=== PATIENT | female | born 1965 | race Caucasian/White ===

== ENCOUNTER 2018-11-16 08:00 | Outpatient (CLI) | payer BC | END 2018-11-16 23:59 | disposition home or self-care (01) | LOC: LAB.R 08:00 | PROVIDERS: ATTEND Physician Assistant | DX: B34.9 Viral infection, unspecified (principal) | CPT/HCPCS: 87275; 87276 ==

== ENCOUNTER 2018-11-16 09:47 | Outpatient (CLI) | payer BC ==
--- NOTE | 2018-11-16 12:04 | XRAY Report ---
Reason: COUGH Procedure Date: 11/16/2018 Accession Number: [id number] / [id number] Procedure: WCP - Chest 2 View X-Ray CPT Code: 94099 FULL RESULT: EXAM: CHEST RADIOGRAPHY EXAM DATE: 11/16/2018 09:59 AM. CLINICAL HISTORY: Cough. COMPARISON: None. TECHNIQUE: 2 views. FINDINGS: Lungs/Pleura: No focal opacities evident. No pleural effusion. No pneumothorax. Normal volumes. Mediastinum: Heart and mediastinal contours are unremarkable. Other: None. IMPRESSION: No acute cardiopulmonary abnormality. RADIA
== END 2018-11-16 09:48 | disposition home or self-care (01) ==
LOC: DI.WCP 09:47
PROVIDERS: ATTEND Physician Assistant
DX: R05 Cough (principal)
CPT/HCPCS: 71046

== ENCOUNTER 2019-03-05 09:05 | Outpatient (CLI) | payer BC ==
--- NOTE | 2019-03-05 10:26 | Mammography Report ---
Reason: SCREENING MAMMO Procedure Date: 03/05/2019 Accession Number: [id number] / [id number] Procedure: MGN - Screening Mammo Dig Bilat CPT Code: FULL RESULT: EXAM: Screening Mammo Dig Bilat DATE: 03/05/2019 9:27 AM CLINICAL HISTORY: Screening TECHNIQUE: (B) - Bilateral CC and MLO views were obtained. COMPARISON: None PARENCHYMAL PATTERN: (A) - The breasts demonstrate scattered fibroglandular densities bilaterally. FINDINGS: There is a small breast asymmetry right breast seen only on CC view, projecting on nipple line, middle one third. No other suspicious findings in either breast. IMPRESSION: Incomplete examination. BI-RADS category 0. RECOMMENDATION: (ADDMAM) - Recommend additional mammographic views. Consider unilateral 3-D mammography and targeted ultrasound (if indicated). BI-RADS CATEGORY: (0) - Incomplete Examination - need additional evaluation. STANDARD QUALIFYING STATEMENTS: 1. This examination was not reviewed with the aid of Computer-Aided Detection (CAD). 2. A negative or benign imaging report should not preclude biopsy if clinically suspicious findings are present. 3. Dense breasts may obscure an underlying neoplasm. 4. This examination was reviewed without the aid of 3D breast imaging (tomosynthesis).
== END 2019-03-05 09:06 | disposition home or self-care (01) ==
LOC: DI.N 09:05
DX: Z12.31 Encounter for screening mammogram for malignant neoplasm of breast (principal); R92.8 Other abnormal and inconclusive findings on diagnostic imaging of breast
CPT/HCPCS: 77067

== ENCOUNTER 2021-10-26 11:52 | Emergency (ER) | payer BC ==
--- NOTE | 2021-10-26 12:08 | ED Physician Documentation ---
History of Present Illness - Stated complaint Stated Complaint: ABD PX/FEMALE - Chief complaint Chief Complaint: Abd Pain - Additonal information Additional information: 56-year-old female presents emergency department for evaluation of left-sided lower abdominal pain that began today. She reports that she has felt constipated. This morning when she had a bowel movement it was just bright red blood. She denies any chest pain, no fevers no syncope or shortness of air. No history of similar. She has never had a colonoscopy but did have a Cologuard test done last year that was negative. past surgical history is most significant for uterine prolapse repair which has subsequently failed. Past medical history positive for hypertension on lisinopril Patient tested positive for COVID-19 10/17/2021. She is not vaccinated for [place] VID-19. Review of Systems Constitutional: denies: Fever, Chills Cardiac: reports: Reviewed and negative Respiratory: reports: Reviewed and negative GI: reports: Abdominal Pain, Bloody / black stool. denies: Nausea, Vomiting : reports: Reviewed and negative Skin: reports: Reviewed and negative Musculoskeletal: reports: Reviewed and negative Neurologic: reports: Reviewed and negative PD PAST MEDICAL HISTORY - Present Medications Home Medications: Ambulatory Orders Medication Instructions Recorded Confirmed Amox/Clav 875/125 [Augmentin 1 tablet PO Q12H 10 Days #20 tablet 10/26/21 875/125 Tab] - Allergies Allergies/Adverse Reactions: Allergies Allergy/AdvReac Type Severity Reaction Status Date / Time No Known Drug Allergies Allergy Verified 10/26/21 12:05 PD ED PE NORMAL - General General: Alert and oriented X 3, No acute distress - HEENT HEENT: PERRL - Neck Neck: Supple, no meningeal sign, No adenopathy - Cardiac Cardiac: RRR, No murmur, No gallop - Respiratory Respiratory: No respiratory distress, Clear bilaterally - Abdomen Abdomen: Normal bowel sounds, Soft, Non tender - Rectal Rectal: Other (Digital rectal exam reveals bright red blood. Nontender.) - Back Back: No CVA TTP, No spinal TTP - Derm Derm: Normal color, Warm and dry, No rash - Extremities Extremities: No deformity, No tenderness to palpate, Normal ROM s pain - Neuro Neuro: Alert and oriented X 3, recruitment director 2-12 intact, No motor deficit Eye Opening: Spontaneous Motor: Obeys Commands Verbal: Oriented GCS Score: 15 - Psych Psych: Normal mood, Normal affect Results - Vitals Vitals: Vital Signs - 24 hr 10/26/21 10/26/21 10/26/21 12:02 12:57 14:47 Temperature 37.1 C Heart Rate 104 H 100 90 Respiratory 16 18 Rate Blood Pressure 130/87 H 116/70 O2 Saturation 99 99 100 Oxygen O2 Source Room air - Labs Labs: Laboratory Tests 10/26/21 10/26/21 10/26/21 12:18 12:18 12:18 WBC 11.0 H RBC 5.04 Hgb 15.0 Hct 45.6 MCV 90.5 MCH 29.8 MCHC 32.9 RDW 12.5 Plt Count 207 MPV 10.1 Neut # (Auto) 8.6 H Lymph # (Auto) 1.4 L Hendricks # (Auto) 0.9 Eos # (Auto) 0.1 Baso # (Auto) 0.0 Absolute Nucleated RBC 0.00 Nucleated RBC % 0.0 PT INR Sodium 137 Potassium 3.5 Chloride 103 Carbon Dioxide 27 Anion Gap 7.0 BUN 11 Creatinine 0.9 Estimated GFR (MDRD) 65 L Glucose 122 H Calcium 9.0 Total Bilirubin 0.9 AST 21 ALT 28 Alkaline Phosphatase 50 Total Protein 6.9 Albumin 3.9 Globulin 3.0 Albumin/Globulin Ratio 1.3 Lipase 28 Urine Color Urine Clarity Urine pH Ur Specific [place] Urine Protein Urine Glucose (UA) Urine Ketones Urine Occult Blood Urine Nitrite Urine Bilirubin Urine Urobilinogen Ur Leukocyte Esterase Ur Microscopic Review Urine Culture Comments Blood Type O POSITIVE Antibody Screen NEGATIVE 10/26/21 10/26/21 12:18 13:00 WBC RBC Hgb Hct MCV MCH MCHC RDW Plt Count MPV Neut # (Auto) Lymph # (Auto) Hendricks # (Auto) Eos # (Auto) Baso # (Auto) Absolute Nucleated RBC Nucleated RBC % PT 12.2 INR 1.1 Sodium Potassium Chloride Carbon Dioxide Anion Gap BUN Creatinine Estimated GFR (MDRD) Glucose Calcium Total Bilirubin AST ALT Alkaline Phosphatase Total Protein Albumin Globulin Albumin/Globulin Ratio Lipase Urine Color YELLOW Urine Clarity CLEAR Urine pH 6.0 Ur Specific [place] 1.010 Urine Protein NEGATIVE Urine Glucose (UA) NEGATIVE Urine Ketones NEGATIVE Urine Occult Blood TRACE-INTA Urine Nitrite NEGATIVE Urine Bilirubin NEGATIVE Urine Urobilinogen 0.2 (NORMAL) Ur Leukocyte Esterase NEGATIVE Ur Microscopic Review NOT INDICATED Urine Culture Comments NOT INDICATED Blood Type Antibody Screen - Rads (name of study) CT abdomen Radiology: Final report received (Segmental colitis centered within the descending colon likely secondary to an infectious or inflammatory process. No evidence of diverticulitis.) PD MEDICAL DECISION MAKING - ED course Complexity details: reviewed results, re-evaluated patient, considered differential, d/w patient ED course: 56-year-old female presents emergency department for evaluation of acute onset left sided abdominal pain as well as bright red blood per rectum. No history of similar in the past. Screening labs did not show any worrisome findings. Her hemoglobin is 15. Electrolytes are nonactionable. I did do a digital rectal exam with marie hematochezia seen. CT of the abdomen does show segmental colitis within the descending colon likely an infectious or inflammatory process. Patient will be started on Augmentin twice daily for the next 10 days. She is advised a clear liquid diet for the next 24 to 48 hours then slowly advance. Emergent return precautions were discussed for worsening symptoms. Patient recently tested positive for COVID-19. She was encouraged to obtain the vaccine about 90 days from the diagnosis date. Departure - Departure Disposition: 01 Home, Self Care Clinical Impression: Colitis Condition: Stable Record reviewed to determine appropriate education?: Yes Prescriptions: Amox/Clav 875/125 [Augmentin 875/125 Tab] 1 tablet PO Q12H 10 Days #20 tablet Comments: Pilar you are seen in the emergency department today for left-sided abdominal pain as well as new onset bright red rectal bleeding. Your screening labs did not show any worrisome findings. Your hemoglobin was 15. We did do a CT of your abdomen pelvis and it does show a colitis within your descending colon. This is most likely infectious meaning bacterial versus an inflammatory process which could be related to recent COVID-19 infection. In order to manage this we are starting you on Augmentin. It this has been sent electronically to the [facility] in [place]. Please begin taking twice daily for the next 10 days. Over the next 24 to 48 hours I would like you to adhere to a clear liquid diet. If your symptoms are improving then you can slowly advance your diet with bananas, rice, applesauce and then toast. If despite the antibiotics you have worsening symptoms, develop high fever, have a racing heart rate, severe worsening abdominal pain then please return immediately to the ER for a second evaluation.
[2021-10-26 12:28] LABS: BASOPHILS % (AUTO) 0.1 %; EOSINOPHILS # (AUTO) 0.1 10^3/uL (0.0-0.7); EOSINOPHILS % (AUTO) 0.5 %; HCT - HEMATOCRIT 45.6 % (37.0-47.0); LYMPHOCYTES # (AUTO) 1.4 10^3/uL (1.5-3.5); MEAN CORPUSCULAR HEMOGLOBIN 29.8 pg (27.0-31.0); MEAN CORPUSCULAR HGB CONC 32.9 g/dL (32.0-36.0); MEAN CORPUSCULAR VOLUME 90.5 fL (81.0-99.0); MEAN PLATELET VOLUME 10.1 fL (7.9-10.8); MONOCYTES # (AUTO) 0.9 10^3/uL (0.0-1.0); MONOCYTES % (AUTO) 8.2 %; NEUTROPHILS # (AUTO) 8.6 10^3/uL (1.5-6.6); NEUTROPHILS % (AUTO) 77.7 %; PLT - PLATELET COUNT 207 10^3/uL (130-450); RED BLOOD COUNT 5.04 10^6/uL (4.20-5.40); RED CELL DISTRIBUTION WIDTH 12.5 % (12.0-15.0)
[2021-10-26 12:43] LABS: ALBUMIN 3.9 g/dL (3.2-5.5); ALBUMIN/GLOBULIN RATIO 1.3 (1.0-2.2); BILIRUBIN,TOTAL 0.9 mg/dL (0.2-1.0); CREATININE 0.9 mg/dL (0.4-1.0); POTASSIUM 3.5 mmol/L (3.5-5.0); TOTAL PROTEIN 6.9 g/dL (6.7-8.2)
[2021-10-26] MEDS ORDERED: IOVERSOL 320 100 ML VIAL IVP ONE ×2 (12:55→14:09)
[2021-10-26 13:03] LABS: INR 1.1 (0.8-1.2); PT - PROTHROMBIN TIME 12.2 secs (9.9-12.6)
[2021-10-26 13:10] LABS: BILIRUBIN,URINE NEGATIVE (NEGATIVE); GLUCOSE, URINE (UA) NEGATIVE (NEGATIVE); KETONES,URINE (UA) NEGATIVE (NEGATIVE); LEUKOCYTE ESTERASE, URINE NEGATIVE (NEGATIVE); NITRITE,URINE NEGATIVE (NEGATIVE); OCCULT BLOOD,URINE TRACE-INTA (NEGATIVE); PROTEIN,URINE NEGATIVE (NEGATIVE); UROBILINOGEN,URINE 0.2 (NORMAL) E.U./dL (NORMAL)
[2021-10-26] MEDS ORDERED: SODIUM CHLORIDE 0.9% 1,000 ML IV STA (13:12)
[2021-10-26 13:14] LABS: CLARITY,URINE CLEAR (CLEAR)
--- NOTE | 2021-10-26 14:38 | CT Report ---
PROCEDURE: Abdomen/Pelvis W INDICATIONS: LLQ Abdominal pain, diverticulitis suspected CONTRAST: IV CONTRAST: Optiray 320 ml: 100 PO CONTRAST: *NO PO CONTRAST TECHNIQUE: After the administration of intravenous contrast, 5 mm thick sections acquired from the diaphragms to the symphysis. 5 mm thick coronal and sagittal reformats were acquired. For radiation dose reducti on, the following was used: automated exposure control, adjustment of mA and/or kV according to priscilla ent size. COMPARISON: None. FINDINGS: Image quality: Excellent. ABDOMEN: Lung bases: There is mild dependent atelectasis. Heart size is normal. Solid organs: There is a cyst in segment 6 of the right hepatic lobe measuring up to 0.9 cm. An addit ional small hypodense focus in segment 8 is too small to characterize but likely represents a cyst. G allbladder appears within normal limits without calcified gallstones. Biliary system is non dilated. The spleen is normal in size. Pancreas enhances normally without peripancreatic fat stranding or flu id collections. No adrenal nodules. Kidneys demonstrate no hydronephrosis. Peritoneum and bowel: Small bowel loops demonstrate normal wall thickness and caliber. The appendix i s normal in appearance. There is segmental colonic wall thickening involving the length of the descen ding colon with mild involvement in the distal transverse colon and proximal sigmoid colon. Mild asso ciated colonic wall thickening is demonstrated. Findings are consistent with a colitis. No free fluid or air. Nodes and vessels: No retroperitoneal or mesenteric adenopathy by size criteria. Aorta and inferior vena cava are normal in size. Miscellaneous: No ventral hernias. PELVIS: Genitourinary: Bladder wall thickness is normal. Uterus and ovaries appear within normal size limits . Miscellaneous: No inguinal hernias or adenopathy. Bones: No suspicious bony lesions. No vertebral body compression fractures. IMPRESSION: 1. Segmental colitis centered within the descending colon likely secondary to an infectious or inflam matory process. No evidence of diverticulitis. Reviewed by: Mitchell Davis MD on 10/26/2021 2:37 PM PST Approved by: Mitchell Davis MD on 10/26/2021 2:37 PM PST Station ID: [id number]
[2021-10-26 15:17] VITALS: BP 121/82
== END 2021-10-26 15:16 | disposition home or self-care (01) ==
LOC: ED 11:52
DX: U07.1 COVID-19 (principal); K52.9 Noninfective gastroenteritis and colitis, unspecified
CPT/HCPCS: 36415; 74177; 80053; 81003; 83690; 85025; 85610; 86850; 86900; 86901; 99283; 99284; Q9967; 81001; 87086